=== PATIENT | male | born 1995 | race Native Hawaiian/Other Pacific Islander ===

== ENCOUNTER 2019-01-02 08:31 | Emergency (ER) | payer OTHER ==
[2019-01-02] MEDS ORDERED: DEXAMETHASONE 10 MG/ML VIAL PO STA (09:01)
[2019-01-02] MEDS ORDERED: HYDROcod/ACETAM 5/325 MG TABLET PO STA (09:01)
[2019-01-02] MEDS ORDERED: CHERRY SYRUP 10 ML UDC PO ONE (09:01)
[2019-01-02] MEDS ORDERED: NAPROXEN 250 MG TABLET PO STA (09:01)
--- NOTE | 2019-01-02 09:35 | XRAY Report ---
Reason: left foot pain; no noted injury Procedure Date: 01/02/2019 Accession Number: [id number] / [id number] Procedure: XR - Foot 3 View LT CPT Code: Final Report FULL RESULT: EXAM: LEFT FOOT RADIOGRAPHY EXAM DATE: 01/02/2019 09:11 AM. CLINICAL HISTORY: Left foot pain; no noted injury. COMPARISON: None. TECHNIQUE: 3 views. FINDINGS: Bones: No acute fracture. Small bony protuberance along the dorsal margin of the talar neck noted. Joints: Normal. No subluxations. Soft Tissues: Normal. No soft tissue swelling. IMPRESSION: 1. No fracture or malalignment. Small incidental bone protuberance at the dorsal margin of the talus. 2. No soft tissue abnormality. [facility]IA
--- NOTE | 2019-01-02 09:44 | ED Physician Documentation ---
PD HPI LOWER EXT INJURY - Stated complaint Stated Complaint: L FOOT SWELLING/PX - Chief complaint Chief Complaint: Ext Problem - History obtained from History obtained from: Patient - History of Present Illness PD HPI LOW EXT INJURY LOCATION: Left, Foot Type of injury: No: Fall Where injury occurred: Work (does a lot of walking at work, relatively new job (several months)) Timing - details: Gradual onset, Still present Associated symptoms: No: Weakness, Numbness Similar symptoms before: Has not had sx before (but had Achilles tendonitis few months ago, better.) Review of Systems Constitutional: denies: Fever, Chills, Myalgias Skin: denies: Rash Neurologic: denies: Focal weakness, Numbness PD PAST MEDICAL HISTORY - Past Medical History Cardiovascular: Hypertension - Present Medications Home Medications: Ambulatory Orders Medication Instructions Recorded Confirmed Hydrocodone/Acetaminophen 1 each PO Q6H PRN #20 tablet 01/02/19 [Hydrocodon-Acetaminophen 5-325] Naproxen 500 mg PO BID #20 tablet 01/02/19 dexAMETHasone [Decadron] 4 mg PO DAILY #5 tablet 01/02/19 - Allergies Allergies/Adverse Reactions: Allergies Allergy/AdvReac Type Severity Reaction Status Date / Time No Known Drug Allergies Allergy Verified 01/02/19 08:42 - Social History Does the pt smoke?: No Smoking Status: Never smoker PD ED PE NORMAL - Vitals Vital signs reviewed: Yes - General General: Alert and oriented X 3, No acute distress, Well developed/nourished - Derm Derm: Normal color, Warm and dry - Extremities Extremities: Other (dorsum left foot with tenderness, mild warmth. No redness nor skin lesions. Mild swelling but not focal. No joint swelling at ankle. Toes/MTPs are okay. ) Results - Vitals Vitals: Vital Signs - 24 hr 01/02/19 01/02/19 08:41 10:12 Temperature 36.8 C Heart Rate 89 95 Respiratory 18 20 Rate Blood Pressure 172/119 H 161/101 H O2 Saturation 96 98 Oxygen O2 Source Room air - Rads (name of study) left foot Radiology: Prelim report reviewed (no fractures), See rad report PD MEDICAL DECISION MAKING - ED course Complexity details: considered differential (no particular injury but does walk a lot in boots at work, so consider tendonitis. Has had Achilles tendonitis earlier in year, and had some injury around other foot toe as well, so consider if gout with flares on mild injuries. Would treat the same. ), d/w patient Departure - Departure Disposition: 01 Home, Self Care Clinical Impression: Foot tendinitis Condition: Stable Record reviewed to determine appropriate education?: Yes Instructions: ED Sprain Foot Prescriptions: dexAMETHasone [Decadron] 4 mg PO DAILY #5 tablet Hydrocodone/Acetaminophen [Hydrocodon-Acetaminophen 5-325] 1 each PO Q6H PRN #20 tablet PRN Reason: pain Naproxen 500 mg PO BID #20 tablet Comments: Your x-ray is normal without any signs of fractures. This seems like some infla mmation of the tendons of the foot (tendinitis) and can come from repetitive activity and use. Off work today and minimal walking for the next few days to allow it to improve. Alternatively it could be some inflammation in the foot area related to small crystals that can form in a condition called gout. This would get treated similarly to tendinitis and should improve in a similar timeframe. Use naproxen anti-inflammatory twice daily for the next 7 to 10 days. Use Decadron steroid anti-inflammatory for the next few days as well. Add Tylenol or hydrocodone if needed for pains. Recheck if not improved well over the next 3 or 4 days. Forms: Activity restrictions Discharge Date/Time: 01/02/19 10:13
[2019-01-02 10:14] VITALS: BP 161/101
== END 2019-01-02 10:13 | disposition home or self-care (01) ==
LOC: ED 08:31
DX: M70.872 Other soft tissue disorders related to use, overuse and pressure, left ankle and foot (principal); Y93.01 Activity, walking, marching and hiking; Y99.0 Civilian activity done for income or pay; I10 Essential (primary) hypertension
CPT/HCPCS: 73630; 99283; A9270